=== PATIENT | male | born 1990 | race Caucasian/White ===

== ENCOUNTER 2022-04-21 10:47 | Emergency (ER) | payer SELFPAY ==
[~2022-04-21] VITALS: Ht 171.4 cm; Wt 78.7 kg
--- NOTE | 2022-04-21 10:53 | NUR ---
Jolly boston in [facility] - 04/21/22 at 1058 by ESTHERPM PT AMBULATE TO BED 7. PT IN A GOWN
[2022-04-21 10:54] VITALS: BP 128/91
--- NOTE | 2022-04-21 10:58 | NUR ---
Patient ambulated to bed 12 with steady/even gait.
--- NOTE | 2022-04-21 11:00 | NUR ---
31 y/o M BIB self from home c/o left eyelid swelling, redness and pain. Patient A&Ox4, ambulatory, states onset x 2 days. States 7/10, swelling/constant, non-radiating pain. Denies medications prior to arrival. Denies blurry vision. PMH/Sx/Meds: Denies NKDA
--- NOTE | 2022-04-21 11:41 | NUR ---
Patient discharged with v/s stable. Written and verbal after care instructions given and explained. Patient verbalized understanding. Ambulatory with steady gait. All questions addressed prior to discharge. Advised to follow up with PMD.
== END 2022-04-21 11:41 | disposition home or self-care (01) ==
LOC: MED 10:47
DX: H00.14 Chalazion left upper eyelid (principal)
CPT/HCPCS: 99281